=== PATIENT | female | born 1970 | race Caucasian/White ===

== ENCOUNTER 2017-10-11 09:23 | Emergency (ER) | payer SELFPAY ==
--- NOTE | 2017-10-11 10:10 | ER Document Report ---
ED Medical Screen (RME) - General Chief Complaint: Vaginal Discharge Stated Complaint: FLANK PAIN Time Seen by Provider: 10/11/17 10:06 Mode of Arrival: Ambulatory Information source: Patient TRAVEL OUTSIDE OF THE [place] IN LAST 30 DAYS: No - HPI Patient complains to provider of: vaginal d/c, pain Onset: Yesterday - pt. with 1 day h/o R pelvic pain (h/o ovarian cyst) and vaginal d/c. - Related Data Allergies/Adverse Reactions: No Known Allergies Allergy (Verified 10/11/17 09:25) Past Medical History - Social History Chew tobacco use (# tins/day): No Frequency of alcohol use: Occasional Drug Abuse: None Renal/ Medical History: Denies: Hx Peritoneal Dialysis Psychiatric Medical History: Reports: Hx Depression Physical Exam - Vital signs Vitals: Temp Pulse Resp BP Pulse Ox 97.8 F 73 16 164/87 H 100 10/11/17 10:01 10/11/17 10:01 10/11/17 10:01 10/11/17 10:01 10/11/17 10:01 Course - Vital Signs Vital signs: Temp Pulse Resp BP Pulse Ox 97.8 F 73 16 164/87 H 100 10/11/17 10:01 10/11/17 10:01 10/11/17 10:01 10/11/17 10:01 10/11/17 10:01
[2017-10-11 10:31] LABS: ABSOLUTE BASOPHILS # (AUTO) 0.1 10^3/uL (0.0-0.2); ABSOLUTE EOSINOPHILS # (AUTO) 0.1 10^3/uL (0.0-0.6); ABSOLUTE MONOCYTES (AUTO) 0.6 10^3/uL (0.1-1.4); ABSOLUTE NEUT (AUTO) 2.9 10^3/uL (1.7-8.2); BASOPHILS % (AUTO) 0.9 % (0-2); EOSINOPHILS % (AUTO) 0.9 % (0-6); HEMATOCRIT 36.7 % (36.0-47.0); HEMOGLOBIN 12.4 g/dL (12.0-15.5); LYMPHOCYTES % (AUTO) 35.4 % (13-45); MEAN CORPUSCULAR HGB CONC 33.8 g/dL (32.0-36.0); MEAN CORPUSCULAR VOLUME 89 fl (80-97); MONOCYTES % (AUTO) 10.9 % (3-13); PLATELET COUNT 273 10^3/uL (150-450); RED BLOOD COUNT 4.15 10^6/uL (3.72-5.28); RED CELL DISTRIBUTION WIDTH 12.6 % (11.5-14.0); SEGMENTED NEUTROPHILS % (AUTO) 51.9 % (42-78); TOTAL CELLS COUNTED % (AUTO) 100 %; WHITE BLOOD COUNT 5.6 10^3/uL (4.0-10.5)
[2017-10-11 10:49] LABS: APPEARANCE,URINE CLEAR; BILIRUBIN,URINE NEGATIVE (NEGATIVE); COLOR,URINE STRAW; GLUCOSE, URINE NEGATIVE (NEGATIVE); KETONES,URINE NEGATIVE (NEGATIVE); LEUKOCYTE ESTERASE,URINE LARGE (NEGATIVE); NITRITE,URINE NEGATIVE (NEGATIVE); PROTEIN,URINE NEGATIVE (NEGATIVE); URINE SPECIFIC GRAVITY 1.006; UROBILINOGEN,URINE NEGATIVE mg/dL (<2.0)
[2017-10-11 10:50] LABS: ALANINE AMINOTRANSFERASE 17 U/L (9-52); ALBUMIN 4.4 g/dL (3.5-5.0); ALKALINE PHOSPHATASE 42 U/L (38-126); ANION GAP 12 (5-19); ASPARTATE AMINO TRANSFERASE 19 U/L (14-36); BILIRUBIN,DIRECT 0.2 mg/dL (0.0-0.4); BILIRUBIN,TOTAL 0.3 mg/dL (0.2-1.3); BLOOD UREA NITROGEN 15 mg/dL (7-20); CALCIUM 9.8 mg/dL (8.4-10.2); CARBON DIOXIDE 29 mmol/L (22-30); CHLORIDE 106 mmol/L (98-107); GLUCOSE 79 mg/dL (75-110); POTASSIUM 4.7 mmol/L (3.6-5.0); SODIUM 146.5 mmol/L (137-145); TOTAL PROTEIN 7.4 g/dL (6.3-8.2)
--- NOTE | 2017-10-11 12:21 | RADIOLOGY REPORT (SQ) ---
EXAM DESCRIPTION: U/S NON-OB PELVIS TV W/O DOP COMPLETED DATE/TIME: 10/11/2017 11:57 am REASON FOR STUDY: pelvic pain LMP 06/18/2017 COMPARISON: None. TECHNIQUE: Dynamic and static grayscale images acquired of the pelvis via transvaginal approach and recorded on PACS. Additional selected color Doppler and spectral images recorded. LIMITATIONS: None. FINDINGS: UTERUS: Contour normal. No mass. ENDOMETRIAL STRIPE: No focal or generalized thickening. No masses. CERVIX: No nabothian cysts. RIGHT OVARY AND DOPPLER: Normal size. No worrisome masses. Normal arterial vascular flow without evid ence for torsion. LEFT OVARY AND DOPPLER: Ovary not seen. FREE FLUID: None noted. OTHER: No other significant finding. MEASUREMENTS: UTERUS: 7.3 x 4.9 x 3.7 cm. ENDOMETRIAL STRIPE: 9 mm. RIGHT OVARY: 2.6 x 2.4 x 1.6 cm. LEFT OVARY: Ovary not seen. IMPRESSION: NORMAL TRANSVAGINAL PELVIC ULTRASOUND. TECHNICAL DOCUMENTATION: JOB ID: [id number] [employer]- All Rights Reserved Rev-08/16 Reading location - IP/workstation name: [email or web address]
[2017-10-11] MEDS ORDERED: ACETAMINOPHEN 325 MG TABLET PO ONE (12:37)
[2017-10-11] MEDS ORDERED: IBUPROFEN 800 MG TABLET PO ONE (12:37)
--- NOTE | 2017-10-11 13:14 | ER Document Report ---
ED GI/ - General Chief Complaint: Vaginal Discharge Stated Complaint: FLANK PAIN Time Seen by Provider: 10/11/17 10:06 Mode of Arrival: Ambulatory Notes: 47 yo female with right ovarian pain for 4 days. Vaginal d/c few days ago. No menses since May and she has been having hot flashes. Hx appendectomy. TRAVEL OUTSIDE OF THE [place] IN LAST 30 DAYS: No - Related Data Allergies/Adverse Reactions: No Known Allergies Allergy (Verified 10/11/17 09:25) Past Medical History - General Information source: Patient - Social History Smoking Status: Former Smoker Chew tobacco use (# tins/day): No Frequency of alcohol use: Occasional Drug Abuse: None Lives with: Family Family History: Reviewed & Not Pertinent Patient has suicidal ideation: No Patient has homicidal ideation: No Renal/ Medical History: Reports: Hx Ovarian Cysts Psychiatric Medical History: Reports: Hx Depression Past Surgical History: Reports: Hx Appendectomy, Hx Tubal Ligation Review of Systems - Review of Systems Constitutional: No symptoms reported EENT: No symptoms reported Cardiovascular: No symptoms reported Respiratory: No symptoms reported Gastrointestinal: No symptoms reported Genitourinary: No symptoms reported Female Genitourinary: See HPI Musculoskeletal: No symptoms reported Skin: No symptoms reported Hematologic/Lymphatic: No symptoms reported Neurological/Psychological: No symptoms reported Physical Exam - Vital signs Vitals: Temp Pulse Resp BP Pulse Ox 97.8 F 73 16 164/87 H 100 10/11/17 10:01 10/11/17 10:01 10/11/17 10:01 10/11/17 10:01 10/11/17 10:01 Interpretation: Normal - General General appearance: Appears well, Alert - HEENT Head: Normocephalic, Atraumatic Eyes: Normal Pupils: PERRL - Respiratory Respiratory status: No respiratory distress Chest status: Nontender Breath sounds: Normal Chest palpation: Normal - Cardiovascular Rhythm: Regular Heart sounds: Normal auscultation Murmur: No - Abdominal Inspection: Normal Distension: No distension Bowel sounds: Normal Tenderness: Nontender Organomegaly: No organomegaly - Back Back: Normal, Tender - right low back/sacroiliac joint and lateral trunk abdominal muscles - Extremities General upper extremity: Normal inspection, Nontender, Normal color, Normal ROM , Normal temperature General lower extremity: Normal inspection, Nontender, Normal color, Normal ROM , Normal temperature, Normal weight bearing. No: Gerardo's sign - Neurological Neuro grossly intact: Yes Cognition: Normal Orientation: AAOx4 [place] Coma Scale Eye Opening: Spontaneous [place] Coma Scale Verbal: Oriented [place] Coma Scale Motor: Obeys Commands Robson Coma Scale Total: 15 Speech: Normal Motor strength normal: LUE, RUE, LLE, RLE Sensory: Normal - Psychological Associated symptoms: Normal affect, Normal mood - Skin Skin Temperature: Warm Skin Moisture: Dry Skin Color: Normal Skin irregularity: negative: Rash Course - Re-evaluation Re-evalutation: 10/11/17 13:12 GC and Chlamydia are pending. I sent the patient to get a self swab wet prep. CBC chemistry and urine are negative. There are 11 WBCs on the urine so I sent a urine culture. There is no urine bacteria on the micro. The ultrasound is a normal right ovary without cyst which she thought she had. The left ovary was not seen. test is negative. 10/11/17 13:15 10/11/17 13:24 Wet prep is negative patient will call me back for the gonorrhea and Chlamydia test. - Vital Signs Vital signs: Temp Pulse Resp BP Pulse Ox 97.6 F 69 12 140/92 H 97 10/11/17 13:48 10/11/17 13:48 10/11/17 13:48 10/11/17 13:48 10/11/17 13:48 - Laboratory Result Diagrams: 10/11/17 10:20 10/11/17 10:20 Laboratory results interpreted by me: 10/11/17 10/11/17 10:20 10:20 Sodium 146.5 H Urine Blood SMALL H Ur Leukocyte Esterase LARGE H Discharge - Discharge Clinical Impression: Myalgia, lateral abdominal muscle tender Low back pain Qualifiers: Chronicity: acute Back pain laterality: right Sciatica presence: without sciatica Qualified Code(s): M54.5 - Low back pain Condition: Good Disposition: HOME, SELF-CARE Instructions: Acetaminophen, Ibuprofen (General) ([facility]), Low Back Pain ([facility]), Muscle Strain ([facility]), Myalagia (Muscle Pain) ([facility]), Warm Packs ([facility]) Additional Instructions: Warm compress Tylenol Motrin Call me in 2 hours at [phone] for the gonorrhea and Chlamydia test. Prescriptions: Ibuprofen [Motrin 800 mg Tablet] 800 mg PO Q8HP PRN #30 tablet PRN Reason: Forms: Return to Work
[2017-10-11 13:21] LABS: RBCS (WET MOUNT) NO RBCS SEEN; T.VAGINALIS (WET MOUNT) NO TRICHOMONAS SEEN; WBCS (WET MOUNT) FEW WBCS SEEN; YEAST (WET MOUNT) NO YEAST SEEN
[2017-10-11 13:45] LABS: CHLAM PCR NOT DETECTED (NOT DETECT); GON PCR NOT DETECTED (NOT DETECT)
[2017-10-11 13:49] VITALS: BP 140/92
== END 2017-10-11 13:55 | disposition home or self-care (01) ==
LOC: ER 09:23
DX: R10.819 Abdominal tenderness, unspecified site (principal); M54.5 Low back pain; M79.1 Myalgia; N94.89 Other specified conditions associated with female genital organs and menstrual cycle; N89.8 Other specified noninflammatory disorders of vagina; Z90.49 Acquired absence of other specified parts of digestive tract; Z87.42 Personal history of other diseases of the female genital tract; Z87.891 Personal history of nicotine dependence
CPT/HCPCS: 36415; 76830; 80053; 81001; 81025; 85025; 87210; 87491; 87591; 99284

== ENCOUNTER 2018-05-19 12:41 | Emergency (ER) | payer OTHER ==
[2018-05-19] MEDS ORDERED: KETOROLAC TROMETHAMINE 60 MG/2 ML SDV IM ONE (14:21)
[2018-05-19] MEDS ORDERED: METHOCARBAMOL 500 MG TABLET PO ONE (14:21)
[2018-05-19] MEDS ORDERED: DEXAMETHASONE 4 MG TABLET PO ONE (14:21)
[2018-05-19] MEDS ORDERED: LIDOCAINE 5% (700 MG) TRANSDERMAL ADH..PATCH TP ONE (14:21)
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
[2018-05-19 16:12] VITALS: BP 146/82
== END 2018-05-19 16:12 | disposition home or self-care (01) ==
LOC: ER 12:41
DX: S16.1XXA Strain of muscle, fascia and tendon at neck level, initial encounter (principal); M54.2 Cervicalgia; M54.89 Other dorsalgia; M25.512 Pain in left shoulder; V43.52XA Car driver injured in collision with other type car in traffic accident, initial encounter; V43.51XA Car driver injured in collision with sport utility vehicle in traffic accident, initial encounter; Z87.891 Personal history of nicotine dependence
CPT/HCPCS: 99284; 96372; 73030; 72070; 72125; J1885

== ENCOUNTER 2018-07-14 09:46 | Emergency (ER) | payer SELFPAY ==
[2018-07-14] MEDS ORDERED: IPRATROPIUM/ALBUTEROL 0.5-2.5 MG/3 ML AMPUL NEB ONE (10:18)
--- NOTE | 2018-07-14 10:21 | ER Document Report ---
ED Medical Screen (RME) - General Chief Complaint: Ear Pain Stated Complaint: EAR PAIN Time Seen by Provider: 07/14/18 10:13 Mode of Arrival: Ambulatory TRAVEL OUTSIDE OF THE [place] IN LAST 30 DAYS: No - HPI Patient complains to provider of: Possible cold Notes: 07/14/18 10:19 Patient is here stating that last week she had some cough and congestion. She now states that she feels like she is getting worse. She has a sore throat, she states that her ears hurt and feel "cloudy". She has some chest congestion. She occasionally feels "lightheaded". No syncope. No nausea, vomiting, diarrhea. No fever. She has been waking up with some sweats at times. Physical exam: No distress, nontoxic appearing. Few scattered expiratory wheezes on exam. Goo d air movement. Throat exam is benign. Ear exam shows bilateral cerumen impactions, unable to visualize TMs. Plan: EKG, rapid strep, chest x-ray, DuoNeb. An initial examination was made on the patient as part of the triage process, and it was determined a more comprehensive evaluation was necessary. Initial labs were ordered and patient was transferred to another provider in the ED who assumed care and finished evaluation and plan. - Related Data Allergies/Adverse Reactions: No Known Allergies Allergy (Verified 07/14/18 10:11) Past Medical History - Social History Frequency of alcohol use: None Drug Abuse: None Endocrine Medical History: Reports: Hx Hypothyroidism Renal/ Medical History: Reports: Hx Ovarian Cysts. Denies: Hx Peritoneal Dialysis Musculoskeltal Medical History: Reports Hx Musculoskeletal Deformity, Reports Hx Musculoskeletal Trauma Psychiatric Medical History: Reports: Hx Depression Past Surgical History: Reports: Hx Appendectomy, Hx Tubal Ligation Physical Exam - Vital signs Vitals: Temp Pulse Resp BP Pulse Ox 98.1 F 82 16 163/92 H 100 07/14/18 10:05 07/14/18 10:05 07/14/18 10:05 07/14/18 10:05 07/14/18 10:05 Course - Vital Signs Vital signs: Temp Pulse Resp BP Pulse Ox 98.1 F 82 16 163/92 H 100 07/14/18 10:05 07/14/18 10:05 07/14/18 10:05 07/14/18 10:05 07/14/18 10:05
--- NOTE | 2018-07-14 10:38 | RADIOLOGY REPORT (SQ) ---
EXAM DESCRIPTION: CHEST 2 VIEWS COMPLETED DATE/TIME: 07/14/2018 10:26 am REASON FOR STUDY: cough COMPARISON: None. EXAM PARAMETERS: NUMBER OF VIEWS: two views TECHNIQUE: Digital Frontal and Lateral radiographic views of the chest acquired. RADIATION DOSE: NA LIMITATIONS: none FINDINGS: LUNGS AND PLEURA: No opacities, masses or pneumothorax. No pleural effusion. MEDIASTINUM AND HILAR STRUCTURES: No masses or contour abnormalities. HEART AND VASCULAR STRUCTURES: Heart normal size. No evidence for failure. BONES: Mild dextroconvex scoliosis upper thoracic spine. HARDWARE: None in the chest. OTHER: No other significant finding. IMPRESSION: 1. NO ACUTE RADIOGRAPHIC FINDING IN THE CHEST. TECHNICAL DOCUMENTATION: JOB ID: [id number] [employer]- All Rights Reserved Reading location - IP/workstation name: [email or web address]
[2018-07-14] MEDS ORDERED: HYDROCODONE/ACETAMINOPHEN 5-325 MG TABLET PO ONE (10:58)
[2018-07-14] MEDS ORDERED: DOCUSATE SODIUM 100 MG CAPSULE BTH_EAR ONE (10:59)
[2018-07-14] MEDS ORDERED: ACETAMINOPHEN 325 MG TABLET PO ONE (11:16)
[2018-07-14] MEDS ORDERED: GUAIFENESIN/D-METHORPHAN (200-20 MG) SYRUP 10 ML PO ONE (11:46)
[2018-07-14] MEDS ORDERED: BENZONATATE 100 MG CAPSULE PO ONE (11:46)
[2018-07-14 13:13] VITALS: BP 141/86
--- NOTE | 2018-07-14 18:07 | ER Document Report ---
Entered by LUCAS COX SCRIBE 07/14/18 1107 Acting as scribe for:ALICIA DIAZ MD ED General - General Chief Complaint: Ear Pain Stated Complaint: EAR PAIN Time Seen by Provider: 07/14/18 10:13 Mode of Arrival: Ambulatory Information source: Patient Notes: Patient is a 48 year old female with hypothyroidism presents to the emergency department complaining of multiple symptoms including sore throat, diaphoresis, small cough and subjective fevers onset a few days ago. Patient states she initially believed she was developing a cold but her symptoms have persisted. She describes her cough as intermittently productive with dark yellow sputum. She states she would wake up in the middle of the night hot and covered in sweat. She also states "my ears are very cloudy". She denies any difficulty breathing. Patient states her LMP was over a year ago further stating believes she is post menopausal and has had hot flashes since. TRAVEL OUTSIDE OF THE [place] IN LAST 30 DAYS: No - Related Data Allergies/Adverse Reactions: No Known Allergies Allergy (Verified 07/14/18 10:11) Past Medical History - General Information source: Patient - Social History Smoking Status: Former Smoker Cigarette use (# per day): No Chew tobacco use (# tins/day): No Frequency of alcohol use: None Drug Abuse: None Family History: Reviewed & Not Pertinent Patient has suicidal ideation: No Patient has homicidal ideation: No Endocrine Medical History: Reports: Hx Hypothyroidism Renal/ Medical History: Reports: Hx Ovarian Cysts Musculoskeletal Medical History: Reports Hx Musculoskeletal Deformity, Reports Hx Musculoskeletal Trauma Psychiatric Medical History: Reports: Hx Depression Past Surgical History: Reports: Hx Appendectomy, Hx Tubal Ligation Review of Systems - Review of Systems Constitutional: See HPI EENT: See HPI Cardiovascular: No symptoms reported Respiratory: See HPI, Cough Gastrointestinal: No symptoms reported Genitourinary: No symptoms reported Female Genitourinary: No symptoms reported Musculoskeletal: No symptoms reported Skin: No symptoms reported Hematologic/Lymphatic: No symptoms reported Neurological/Psychological: No symptoms reported -: Yes All other systems reviewed and negative Physical Exam - Vital signs Vitals: Temp Pulse Resp BP Pulse Ox 98.1 F 82 16 163/92 H 100 07/14/18 10:05 07/14/18 10:05 07/14/18 10:05 07/14/18 10:05 07/14/18 10:05 - Notes Notes: GENERAL: Alert, interacts well. No acute distress. HEAD: Normocephalic, atraumatic. EYES: Pupils equal, round, and reactive to light. Extraocular movements intact. ENT: Oral mucosa moist, tongue midline. Both external canals have a large amount of very hard earwax. There is some space between the edge of the wax in the canals on either side to allow minimal visualization of the TMs. They are grossly normal appearing. The throat has some erythema along the edge of the soft palate without edema. There is no exudate. NECK: Full range of motion. Supple. Trachea midline. LUNGS: Patient reportedly had some wheezing at triage and received a breathing treatment before I had a chance to examine her. At this time I do not hear any wheezes. There is some slight rhonchi on forced cough. No respiratory distress. HEART: Regular rate and rhythm. No murmur. ABDOMEN: Soft, non-tender. Non-distended. Bowel sounds present in all 4 quadrants. No guarding, rigidity, or rebound. EXTREMITIES: Moves all 4 extremities spontaneously. NEUROLOGICAL: Alert and oriented x3. Normal speech. PSYCH: Normal affect, normal mood. SKIN: Warm, dry, normal turgor. No rashes or lesions noted. Course - Re-evaluation Re-evalutation: 07/14/18 13:02 After soaking the ears with Colace drops and attempting irrigation, there still is considerable wax in the canals. You can see that the outer surface of the wax has softened up some, but it will probably take a week or more of daily use of earwax removal drops to make any progress. - Vital Signs Vital signs: Temp Pulse Resp BP Pulse Ox 98.1 F 82 16 163/92 H 100 07/14/18 10:05 07/14/18 10:05 07/14/18 10:05 07/14/18 10:05 07/14/18 10:05 Discharge - Discharge Clinical Impression: Viral upper respiratory tract infection with cough, Wax in ear Condition: Stable Disposition: HOME, SELF-CARE Additional Instructions: Viral Syndrome: The physician has diagnosed a viral infection. Viruses not only cause " colds," but can cause many different symptoms including generalized aching, fever, headache, cough, diarrhea, nausea, vomiting, and fatigue. The treatment, for the most part, is simply relief of symptoms. This means that antibiotics are usually not given. Rest, fluids, pain medications and, occasionally, medication for the specific symptoms that are most bothersome will be prescribed. Use good handwashing to avoid passing the virus to others. Shared toys should be cleaned with disinfectant. Clean the toilets, sinks, and counter surfaces in bathrooms. Launder clothing in hot water. Contact the physician if you develop any new or unusual symptoms such as severe headache, stiff neck, high fever, chest pain, productive cough, or shortness of breath. You should be rechecked if you don't see marked improvement within seven to 10 days. Upper Respiratory Illness: You have a viral infection of the respiratory passages -- a "cold." This common infection causes nasal congestion, drainage, and often sore throat and cough. It is caused by a virus and is highly contagious. The disease usually lasts a week or more, though the worst symptoms are usually over in 3 or 4 days. There is no "cure" for the viral infection -- it must run its course. If there is a complication, such as bacterial infection in the nose, sinuses, middle ear, or bronchial tubes, antibiotics may be required, but antibiotics won't affect the virus. If you smoke, you should STOP!! Drink plenty of fluids. A humidifier may help. An expectorant medication or decongestant may make you more comfortable. Use acetaminophen or ibuprofen for fever or aches. See the doctor if fever persists over two or three days, if there is any significant worsening of your symptoms, or if you simply fail to improve as expected. Cerumen Impaction: The physician found a severe buildup of earwax in your ear canal, called a cerumen impaction. A large plug of wax can cause earache, decreased hearing, or itching. It can even lead to infection of the outer ear. An impaction of earwax can be removed by the physician using special instruments, or can be irrigated out using a stream of water (often a little of both is required). Some less severe impactions are removed using ear drops that dissolve wax. In the future, don't get soap in your ear canal. Soap doesn't remove wax - - it simply hardens it in place. Don't use cotton swabs. These just push the wax into large clumps, where it doesn't flow out normally. Dust and smoke also contribute to wax buildup. Earwax softening drops are available without prescription, and can be used periodically. Contact the doctor if you develop decreased hearing, earache, drainage from the ear, or severe headache. Take medication as prescribed to help suppress your cough. Drink plenty of fluids. Try adding something like Robitussin-DM for additional cough suppression as needed. Use hrta-wuk-shsnvze earwax removal drops in your ears every day for the next 1- 2 weeks. Follow-up with a primary care provider in the next 1-2 weeks for recheck. RETURN TO THE EMERGENCY ROOM IF ANY NEW OR WORSENING SYMPTOMS. Prescriptions: Benzonatate [Tessalon Perles 100 mg Capsule] 100 mg PO ASDIR PRN #30 capsule PRN Reason: Forms: Return to Work Scribe Attestation: 07/14/18 11:46 I personally performed the services described in the documentation, reviewed and edited the documentation which was dictated to the scribe in my presence, and it accurately records my words and actions. I personally performed the services described in the documentation, reviewed and edited the documentation which was dictated to the scribe in my presence, and it accurately records my words and actions.
--- NOTE | 2018-07-14 20:01 | EKG REPORT ---
SEVERITY:- NORMAL ECG - SINUS RHYTHM : Confirmed by: Delaney Mo MD 14-Jul-2018 20:00:53
== END 2018-07-14 13:12 | disposition home or self-care (01) ==
LOC: ER 09:46
DX: J06.9 Acute upper respiratory infection, unspecified (principal); B97.89 Other viral agents as the cause of diseases classified elsewhere; H61.23 Impacted cerumen, bilateral; J02.9 Acute pharyngitis, unspecified; R05 Cough; R50.9 Fever, unspecified; Z87.891 Personal history of nicotine dependence
CPT/HCPCS: 93005; 94640; 99283; 87070; 87880; 71046; 93010; J3490; J7620

== ENCOUNTER 2018-09-22 05:23 | Emergency (ER) | payer SELFPAY ==
--- NOTE | 2018-09-22 05:56 | ER Document Report ---
ED Cardiac <RUSS CUMMINGS - Last Filed: 09/22/18 09:25> - General TRAVEL OUTSIDE OF THE [place] IN LAST 30 DAYS: No <GERMANIA BHANDARI - Last Filed: 10/03/18 02:56> - General Chief Complaint: Chest Pain Stated Complaint: CHEST HEAVINESS Time Seen by Provider: 09/22/18 05:43 Primary Care Provider: [facility] [Provider Group] - Follow up tomorrow Notes: Patient is a 48-year-old female who presents the emergency department with a chief complaint of chest heaviness. Her chest heaviness started last night. She also states that she feels fatigued. Patient states that she is supposed to be taking levothyroxine 100 mcg daily, but she has not been able to get the prescription. She does not have insurance. She has been off her levothyroxine for the past few months. She denies any shortness of breath or difficulty breathing. Denies any other past medical history. (GERMANIA BHANDARI) - Related Data Allergies/Adverse Reactions: No Known Allergies Allergy (Verified 09/22/18 07:50) Past Medical History - Social History Smoking Status: Unknown if Ever Smoked Family History: Reviewed & Not Pertinent Endocrine Medical History: Reports: Hx Hypothyroidism Renal/ Medical History: Reports: Hx Ovarian Cysts. Denies: Hx Peritoneal Dialysis Musculoskeletal Medical History: Reports Hx Musculoskeletal Deformity, Reports Hx Musculoskeletal Trauma Psychiatric Medical History: Reports: Hx Depression Past Surgical History: Reports: Hx Appendectomy, Hx Tubal Ligation <GERMANIA BHANDARI - Last Filed: 10/03/18 02:56> Review of Systems <GERMANIA BHANDARI - Last Filed: 10/03/18 02:56> - Review of Systems Notes: REVIEW OF SYSTEMS: CONSTITUTIONAL : Denies recent illness. Denies recent unintentional weight loss. Denies fever, chills, or sweats. EENT: Denies eye, ear, throat, or mouth pain, discharge, or symptoms. Denies nasal or sinus congestion. CARDIOVASCULAR: See HPI. RESPIRATORY: Denies shortness of breath, cough, congestion, difficulty breathing, or wheezing. GASTROINTESTINAL: Denies nausea, vomiting, and diarrhea. Denies abdominal pain. Denies constipation. GENITOURINARY: Denies difficulty urinating, burning, blood in urine, urgency or frequency. MUSCULOSKELETAL: Denies neck and back pain. Denies joint pain or swelling. SKIN: Denies rash, itchiness, or lesions HEMATOLOGIC : Denies easy bruising or bleeding. LYMPHATIC: Denies swollen, painful, enlarged glands. NEUROLOGICAL: Denies no numbness or tingling denies weakness. Denies headache. Denies altered mental status. Denies alteration in speech. PSYCHIATRIC: See HPI. All other systems reviewed and negative. (GERMANIA BHANDARI) Physical Exam <GERMANIA BHANDARI - Last Filed: 10/03/18 02:56> - Vital signs Vitals: Temp Pulse Resp BP Pulse Ox 98.5 F 79 18 167/94 H 100 09/22/18 05:36 09/22/18 05:36 09/22/18 05:36 09/22/18 05:36 09/22/18 05:36 - Notes Notes: PHYSICAL EXAMINATION: GENERAL: Appears well, healthy, well-nourished, no acute distress. HEAD: Normocephalic, atraumatic. EYES: PERRL, conjunctiva normal, all extraocular movements intact, sclera nonicteric ENT: Moist mucous membranes. NECK: Supple, no noticeable swelling, redness, rash. Normal range of motion. LUNGS: Equal breath sounds bilaterally and clear to auscultation. No wheezes rales or rhonchi. CARDIOVASCULAR: S1-S2, regular rate, regular rhythm. Radial pulses 2+, normal. ABDOMEN: Normoactive bowel sounds. Soft, nontender, no guarding, no rebound tenderness, and no masses palpated. EXTREMITIES: Normal strength and range of motion, no pitting or edema. No cyanosis. NEUROLOGICAL: Moves all extremities upon command. Strength 5/5 in all extremities. PSYCH: Anxious. SKIN: Warm, dry. No rash, lesions, ulcerations noted. Normal skin turgor. (GERMANIA BHANDARI) Course - Laboratory Result Diagrams: 09/22/18 06:06 09/22/18 08:20 <RUSS CUMMINGS - Last Filed: 09/22/18 09:25> - Laboratory Result Diagrams: 09/22/18 06:06 09/22/18 08:20 <GERMANIA BHANDARI - Last Filed: 10/03/18 02:56> - Re-evaluation Re-evalutation: 09/22/18 09:25 Patient's TSH is extremely elevated at a level of 161. Upon further assessment patient is resting comfortably on stretcher and currently denies chest pain or palpitations. Her vital signs remained stable and her heart rate is 73 and regular. Blood pressure is 128/82. Germania Bhandari EXHIBIT DESIGNER originally had times of discharge instructions and given a prescription for 4-month dose of levothyroxine. I did discuss the importance of having her medication filled as this will help her feel better over time. Patient states that she does not have insurance at the moment. Patient was referred to the [facility] for follow-up and management of her thyroid. I did explain to the patient that she can get a 1 month supply of her levothyroxine at [facility] for $4 or a 3-month supply for $10. Patient to return to the emergency department for chest pain, shortness of breath, dizziness or any other concerning signs or symptoms. (RUSS CUMMINGS) 09/22/18 06:16 I suspect patient is feeling the way he she is because she has not been on her levothyroxine. She will have a work-up done here in the emergency department. 09/22/18 07:00 Unfortunately the patient's chemistry hemolyzed. Staff will redraw her chemistries. Her EKG shows atrial fibrillation with an atrial rate of 64-68. The patient is very anxious and she was shaking, therefore I suspect this is more artifact. I will repeat her EKG, as she had a previous EKG done on July 14, 2018 that showed sinus rhythm. 09/22/18 07:51 As suspected, the patient's heart rate is actually sinus rhythm based off of a repeat EKG. 09/22/18 08:00 Awaiting chemistries and TSH. Bedside report given to JARAD Jacobs. She will follow-up with patient's labs and hopefully the patient will be ready for discharge. (GERMANIA BHANDARI) - Vital Signs Vital signs: Temp Pulse Resp BP Pulse Ox 98.5 F 79 11 L 128/82 H 100 09/22/18 05:36 09/22/18 05:36 09/22/18 09:01 09/22/18 09:01 09/22/18 09:01 - Laboratory Laboratory results interpreted by me: 09/22/18 09/22/18 09/22/18 06:06 06:06 08:20 Glucose 113 H Creatine Kinase 172 H TSH 161.00 H - EKG Interpretation by Me Additional EKG results interpreted by me: 09/22/18 06:16 There is a lot of artifact on this EKG, which makes it hard to interpret. 09/22/18 07:45 Sinus rhythm. Rate 66. MN 160; QRS 94; QT 420; QTc 441. No ST elevations or depressions noted. No change from previous EKG done on July 14, 2018. (GERMANIA BHANDARI) Discharge <RUSS CUMMINGS - Last Filed: 09/22/18 09:25> <GERMANIA BHANDARI - Last Filed: 10/03/18 02:56> - Discharge Clinical Impression: Chest heaviness Condition: Stable Disposition: HOME, SELF-CARE Additional Instructions: You were seen today in the emergency department for chest heaviness and anxiety. This is most likely due to you not being on your levothyroxine. You are being prescribed your current dosage of levothyroxine. Please continue to take your medication as prescribed. Please follow-up with [facility] in regards to this visit. Please look into getting health insurance and investing in your health. Prescriptions: Levothyroxine Sodium 100 mcg PO DAILY #30 tablet Referrals: [facility] [Provider Group] - Follow up tomorrow
[2018-09-22 06:19] LABS: ABSOLUTE BASOPHILS # (AUTO) 0.1 10^3/uL (0.0-0.2); ABSOLUTE LYMPHOCYTES (AUTO) 1.8 10^3/uL (0.5-4.7); ABSOLUTE MONOCYTES (AUTO) 0.4 10^3/uL (0.1-1.4); ABSOLUTE NEUT (AUTO) 5.5 10^3/uL (1.7-8.2); BASOPHILS % (AUTO) 0.9 % (0-2); EOSINOPHILS % (AUTO) 0.3 % (0-6); HEMATOCRIT 40.4 % (36.0-47.0); HEMOGLOBIN 13.5 g/dL (12.0-15.5); MEAN CORPUSCULAR HEMOGLOBIN 29.3 pg (27.0-33.4); MEAN CORPUSCULAR HGB CONC 33.4 g/dL (32.0-36.0); MEAN CORPUSCULAR VOLUME 88 fl (80-97); MONOCYTES % (AUTO) 4.9 % (3-13); PLATELET COUNT 279 10^3/uL (150-450); RED CELL DISTRIBUTION WIDTH 13.6 % (11.5-14.0); SEGMENTED NEUTROPHILS % (AUTO) 70.9 % (42-78); TOTAL CELLS COUNTED % (AUTO) 100 %; WHITE BLOOD COUNT 7.8 10^3/uL (4.0-10.5)
--- NOTE | 2018-09-22 07:18 | RADIOLOGY REPORT (SQ) ---
EXAM DESCRIPTION: XR CHEST 2 VIEWS COMPLETED DATE/TME: 09/22/2018 05:53 CLINICAL HISTORY: 48 years Female, chest heaviness COMPARISON: 07/14/ NUMBER OF VIEWS/TECHNIQUE: 2, Frontal, Lateral FINDINGS: Adequate lung volume, clear parenchyma, normal cardiac silhouette, and intact bony thorax. Degenerative disc disease. IMPRESSION: No acute cardiopulmonary findings.
[2018-09-22 08:59] LABS: ALANINE AMINOTRANSFERASE 18 U/L (9-52); ALBUMIN 4.7 g/dL (3.5-5.0); ALKALINE PHOSPHATASE 47 U/L (38-126); ANION GAP 10 (5-19); ASPARTATE AMINO TRANSFERASE 21 U/L (14-36); BILIRUBIN,DIRECT 0.2 mg/dL (0.0-0.4); BILIRUBIN,TOTAL 0.4 mg/dL (0.2-1.3); BLOOD UREA NITROGEN 13 mg/dL (7-20); CARBON DIOXIDE 28 mmol/L (22-30); CHLORIDE 103 mmol/L (98-107); GLUCOSE 113 mg/dL (75-110); POTASSIUM 4.1 mmol/L (3.6-5.0); SODIUM 140.6 mmol/L (137-145); TOTAL PROTEIN 7.7 g/dL (6.3-8.2)
[2018-09-22 09:32] VITALS: BP 128/82
--- NOTE | 2018-09-22 22:55 | EKG REPORT ---
SEVERITY:- NORMAL ECG - SINUS RHYTHM : Confirmed by: Richard Valle 22-Sep-2018 22:54:53
--- NOTE | 2018-09-22 22:56 | EKG REPORT ---
SEVERITY:- ABNORMAL ECG - PROBABLE SINUS RHYTHM, REC REPEAT EKG : Confirmed by: Richard Valle 22-Sep-2018 22:55:54
== END 2018-09-22 09:34 | disposition home or self-care (01) ==
LOC: ER 05:23
DX: R09.89 Other specified symptoms and signs involving the circulatory and respiratory systems (principal); E03.9 Hypothyroidism, unspecified; T38.1X6A Underdosing of thyroid hormones and substitutes, initial encounter; Z91.128 Patient's intentional underdosing of medication regimen for other reason; Z91.14 Patient's other noncompliance with medication regimen; R53.83 Other fatigue
CPT/HCPCS: 36415; 71046; 80053; 82550; 82553; 84443; 84484; 85025; 93005; 93010; 99285